=== PATIENT | female | born 1955 | race Caucasian/White ===

== ENCOUNTER → 2018-04-06 | Outpatient (CLI) | payer OTHER | LOC: GIMAGING 09:49 → EDSTATUS 15:55 | PROVIDERS: ATTEND Physician Assistant | DX: M41.85 Other forms of scoliosis, thoracolumbar region (principal); M51.34 Other intervertebral disc degeneration, thoracic region; M51.37 Other intervertebral disc degeneration, lumbosacral region; M46.97 Unspecified inflammatory spondylopathy, lumbosacral region; M25.511 Pain in right shoulder | CPT/HCPCS: 72100-PO; 73030-PO ==

== ENCOUNTER → 2018-06-01 | Outpatient (CLI) | payer OTHER | LOC: FIMAGING 06:30 | PROVIDERS: ATTEND Physical Medicine & Rehabilitation | DX: M75.121 Complete rotator cuff tear or rupture of right shoulder, not specified as traumatic (principal); M75.81 Other shoulder lesions, right shoulder; M19.011 Primary osteoarthritis, right shoulder; M51.36 Other intervertebral disc degeneration, lumbar region; M51.35 Other intervertebral disc degeneration, thoracolumbar region; M51.37 Other intervertebral disc degeneration, lumbosacral region; M46.96 Unspecified inflammatory spondylopathy, lumbar region; M46.95 Unspecified inflammatory spondylopathy, thoracolumbar region; M46.97 Unspecified inflammatory spondylopathy, lumbosacral region; M48.061 Spinal stenosis, lumbar region without neurogenic claudication; M48.07 Spinal stenosis, lumbosacral region; M48.05 Spinal stenosis, thoracolumbar region ==

== ENCOUNTER → 2018-07-05 | Outpatient (CLI) | payer OTHER | LOC: EMCIMAGING 12:53 | PROVIDERS: ATTEND Physical Medicine & Rehabilitation | DX: M50.121 Cervical disc disorder at C4-C5 level with radiculopathy (principal); M25.511 Pain in right shoulder; M25.512 Pain in left shoulder; R51 Headache | CPT/HCPCS: 72141-PN ==

== ENCOUNTER → 2018-07-15 | Outpatient (CLI) | payer OTHER | LOC: FIMAGING 09:25 | PROVIDERS: ATTEND Family Medicine | DX: I10 Essential (primary) hypertension (principal); M06.9 Rheumatoid arthritis, unspecified; N28.9 Disorder of kidney and ureter, unspecified ==